=== PATIENT | male | born 1970 | race Caucasian/White ===

== ENCOUNTER 2019-01-06 10:34 | Emergency (ER) | payer BC ==
[2019-01-06] MEDS ORDERED: TETANUS,DIPHTHERIA,PERTUSSIS 1 EA SYG IM ONE (10:57)
[2019-01-06] MEDS ORDERED: POVIDONE IODINE 10 % 15 ML UD TOP ONE (10:58)
[2019-01-06] MEDS ORDERED: LIDOCAINE 1% 10 ML VIAL INJ ONE (10:59)
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
[2019-01-06 11:46] VITALS: BP 144/95; O2SAT 97
[2019-01-06 11:54] VITALS: TEMP 99
== END 2019-01-06 11:57 | disposition home or self-care (01) ==
LOC: ER 10:34
DX: S01.111A Laceration without foreign body of right eyelid and periocular area, initial encounter (principal); S80.811A Abrasion, right lower leg, initial encounter; S50.311A Abrasion of right elbow, initial encounter; S50.312A Abrasion of left elbow, initial encounter; S60.512A Abrasion of left hand, initial encounter; M06.9 Rheumatoid arthritis, unspecified; I10 Essential (primary) hypertension; Y04.0XXA Assault by unarmed brawl or fight, initial encounter; W10.9XXA Fall (on) (from) unspecified stairs and steps, initial encounter; Y92.89 Other specified places as the place of occurrence of the external cause; Z79.899 Other long term (current) drug therapy